=== PATIENT | female | born 1970 | race Caucasian/White ===

== ENCOUNTER 2024-06-06 15:00 | Outpatient (CLI) | payer OTHER, SELFPAY ==
--- NOTE | ~2024-06-06 | MM_ITS ---
EXAMINATION: MM screening [facility] BI w [place] HISTORY: Screening TECHNIQUE: Craniocaudal and mediolateral oblique 3-D tomosynthesis images were obtained and synthetic 2-D images were generated. CAD analysis was submitted and interpreted. COMPARISON: No prior mammogram is available for comparison at this institution. BREAST PARENCHYMAL COMPOSITION: Dense: The breasts are extremely dense, which lowers the sensitivity of mammography. FINDINGS: There are multiple bilateral breast masses which are obscured by dense fibroglandular tissu e. There are in numerable bilateral breast calcifications, most of which appear benign. IMPRESSION: 1. Multiple bilateral obscured breast masses. 2. Complete bilateral breast ultrasound recommended. BI-RADS Category 0: Incomplete: Needs additional imaging evaluation. Reviewed, dictated and finalized at location B.
== END 2024-06-06 15:01 ==
DX: Z12.31 Encounter for screening mammogram for malignant neoplasm of breast (principal); R92.8 Other abnormal and inconclusive findings on diagnostic imaging of breast
CPT/HCPCS: 77063; 77067

== ENCOUNTER 2024-06-28 09:40 | Outpatient (CLI) | payer OTHER, SELFPAY ==
--- NOTE | ~2024-06-28 | US_ITS ---
US breast BI complete INDICATION: Multiple bilateral breast masses seen on screening examination. TECHNIQUE: Dedicated complete bilateral breast ultrasound including all 4 quadrants in the subareolar locations COMPARISON: Mammogram dated 06/06/2024 BREAST DENSITY: [ Dense: The breasts are extremely dense, which lowers the sensitivity of mammography . ] FINDINGS: Right breast: There are multiple simple and complicated cysts of the right breast. At 2:00, 4 cm from the nipple there is an oval hypoechoic mass with low level internal echoes, parallel orientation, no significant posterior features or internal vascularity measuring 2.2 x 2 x 2.1 cm, likely benign. Left breast: There are multiple simple and complicated cysts of the left breast. At 1:00, 2 cm from t he nipple there is a round 1.1 cm mass with low level internal echoes, no internal vascularity and no posterior features, likely benign. At 4:00, 4 cm from the nipple there is an oval hypoechoic mass wi th low level internal echoes measuring 1.1 cm. There is internal vascularity. IMPRESSION: 1: Suspicious hypoechoic left breast mass at 4:00, 4 cm from the nipple measuring 1.1 cm with interna l vascularity. Ultrasound-guided left breast biopsy recommended. 2: Probable benign bilateral breast masses in the right breast at 2:00, 4 cm from the nipple and in the left breast at 1:00, 2 cm from the nipple. Six-month follow-up ultrasound for these masses recomm ended. BI-RADS CATEGORY 4-SUSPICIOUS ABNORMALITY RECOMMENDATION: Ultrasound-guided left breast biopsy recommended. Reviewed, dictated and finalized at location B. IMPRESSION: 1: Suspicious hypoechoic left breast mass at 4:00, 4 cm from the nipple measuri ng 1.1 cm with internal vascularity. Ultrasound-guided left breast biopsy recom mended. 2: Probable benign bilateral breast masses in the right breast at 2:00, 4 cm f rom the nipple and in the left breast at 1:00, 2 cm from the nipple. Six-month follow-up ultrasound for these masses recommended. BI-RADS CATEGORY 4-SUSPICIOUS ABNORMALITY RECOMMENDATION: Ultrasound-guided left breast biopsy recommended.
== END 2024-06-28 09:41 ==
DX: R92.8 Other abnormal and inconclusive findings on diagnostic imaging of breast (principal); N63.10 Unspecified lump in the right breast, unspecified quadrant; N63.20 Unspecified lump in the left breast, unspecified quadrant
CPT/HCPCS: 76641

== ENCOUNTER 2024-08-10 07:43 | Outpatient (CLI) | payer OTHER, SELFPAY ==
--- NOTE | ~2024-08-10 | MMUS_ITS ---
MM post biopsy diagnostic LT, US breast biopsy LT w image EXAMINATION: US GUIDED NEEDLE BIOPSY WITH VACUUM ASSISTANCE DATE: 08/10/2024 10:54 CDT INDICATION: Abnormal mass seen in the left breast at 4:00, 4 cm from the nipple. Ultrasound-guided c ore biopsy is requested to evaluate for malignancy. BREAST PARENCHYMAL COMPOSITION: Dense: The breasts are extremely dense, which lowers the sensitivity of mammography. TECHNIQUE AND FINDINGS: The risks and potential benefits of the procedure were discussed with the patient, and written inform ed consent was obtained. After sterile preparation of the left breast, 1% lidocaine was utilized for local anesthesia. 1% lidocaine with epinephrine was used for deep anesthesia. A 10G vacuum-assisted biopsy gun needle was advanced through to the outer edge of the region of inter est from a inferior approach utilizing sonographic guidance. A total of three tissue core samples we re obtained through the lesion. The mass of interest nearly completely resolved following biopsy. An Inrad tissue marker clip was then placed at the biopsy site. Hemostasis was achieved. The patient tolerated procedure well and there was no evidence of immediate complication. The patien t was given verbal instructions partly is from the department. Left breast mammograms to document ti ssue marker clip placement. The tissue samples were submitted to surgical pathology for histologic an alysis. IMPRESSION: 1. Successful ultrasound-guided vacuum-assisted biopsy of left/right breast mass with near complete resolution with post procedure mammogram for marker placement. Please refer to pathology report for h istologic analysis. Reviewed, dictated and finalized at location B. IMPRESSION: 1. Successful ultrasound-guided vacuum-assisted biopsy of left/right breast ma ss with near complete resolution with post procedure mammogram for marker place ment. Please refer to pathology report for histologic analysis.
== END 2024-08-10 07:44 | disposition home or self-care (01) ==
DX: N63.20 Unspecified lump in the left breast, unspecified quadrant (principal); R92.8 Other abnormal and inconclusive findings on diagnostic imaging of breast
CPT/HCPCS: 19083; 77065; 88305; A4648